=== PATIENT | female | born 1990 | race Native Hawaiian/Other Pacific Islander ===

== ENCOUNTER 2016-09-10 11:04 | Outpatient (CLI) | payer OTHER | END 2016-09-10 19:06 | disposition home or self-care (01) | LOC: CT 11:04 | DX: R10.31 Right lower quadrant pain (principal); R50.9 Fever, unspecified | CPT/HCPCS: Q9963 ==

== ENCOUNTER 2017-08-06 10:35 | Outpatient (CLI) | payer BC | END 2017-08-06 22:56 | disposition home or self-care (01) | LOC: US 10:35 | DX: N63.21 Unspecified lump in the left breast, upper outer quadrant (principal) ==

== ENCOUNTER 2020-06-06 16:35 | Outpatient (CLI) | payer OTHER | END 2020-06-06 23:59 | disposition home or self-care (01) | LOC: INF 16:35 | PROVIDERS: ATTEND Internal Medicine | DX: Z23 Encounter for immunization (principal) | CPT/HCPCS: 96372 ==

== ENCOUNTER 2020-07-04 12:47 | Outpatient (CLI) | payer OTHER | END 2020-07-04 21:59 | disposition home or self-care (01) | LOC: INF 12:47 | PROVIDERS: ATTEND Internal Medicine | DX: Z23 Encounter for immunization (principal) | CPT/HCPCS: 96372 ==

== ENCOUNTER 2022-06-18 13:52 | Outpatient (CLI) | payer OTHER ==
[2022-06-18 14:46] LABS: PLATELET COUNT 535 K/uL (152-353)
== END 2022-06-18 19:34 | disposition home or self-care (01) ==
LOC: RESP 13:52
PROVIDERS: ATTEND Nurse Practitioner Family
DX: R00.0 Tachycardia, unspecified (principal); R55 Syncope and collapse; D75.839 Thrombocytosis, unspecified
CPT/HCPCS: 36415; 82607; 82728; 82746; 83540; 83550; 83735; 84443; 84481; 85027; 85044; 86038; 93005; 93225

== ENCOUNTER 2022-07-09 15:15 | Outpatient (CLI) | payer OTHER | END 2022-07-09 19:33 | disposition home or self-care (01) | LOC: RESP 15:15 | PROVIDERS: ATTEND Nurse Practitioner Family | DX: R00.0 Tachycardia, unspecified (principal); I34.0 Nonrheumatic mitral (valve) insufficiency ==